=== PATIENT | male | born 1965 ===

== ENCOUNTER 2019-01-16 12:01 | Inpatient (IN) | payer OTHER ==
[~2019-01-16] VITALS: Ht 165.1 cm; Wt 113.4 kg
[2019-01-19] MEDS ORDERED: CEFDINIR300 MG PO (11:19)
== END 2019-01-19 13:07 | disposition home or self-care (01) | DRG 690 ==
LOC: ER 12:01 → MEDJ 19:29 → SEC-K 19:29 → MEDJ 23:19
PROVIDERS: ADMIT Internal Medicine
PROC: BT43ZZZ Ultrasonography of Bilateral Kidneys (ICD-10-PCS; principal; 2019-01-16)
PROC: BW21ZZZ Computerized Tomography (CT Scan) of Abdomen and Pelvis (ICD-10-PCS; 2019-01-17)
DX: N13.6 Pyonephrosis (principal); N20.0 Calculus of kidney; E03.8 Other specified hypothyroidism; E11.9 Type 2 diabetes mellitus without complications; I10 Essential (primary) hypertension

== ENCOUNTER 2020-10-15 07:26 | Outpatient (CLI) | payer OTHER ==
[~2020-10-15 07:26] MED LIST: CEFDINIR300 MG PO
== END 2020-10-15 07:30 | disposition home or self-care (01) ==
LOC: SONOGRAMA 07:26
PROVIDERS: ATTEND Pathology Anatomic Pathology & Clinical Pathology
DX: E04.2 Nontoxic multinodular goiter (principal)